=== PATIENT | male | born 1960 | race Caucasian/White ===

== ENCOUNTER 2017-01-09 20:56 | Emergency (ER) | payer OTHER, MEDICARE ==
[2017-01-09 21:21] VITALS: BP 129/84; PULSE 92; TEMP 98; BMI 31.0
[2017-01-09] MEDS ORDERED: KETOROLAC TROMETHAMINE 60 MG/2 ML VIAL ONE (21:24)
[2017-01-09] MEDS ORDERED: KETOROLAC TROMETHAMINE 60 MG/2 ML VIAL IM ONE (21:40)
--- NOTE | 2017-01-09 22:08 | PDOC ---
History of Present Illness - General Chief Complaint: Back Pain Stated Complaint: BACK PAIN Time Seen by Provider: 01/09/17 21:40 History Source: Patient Exam Limitations: No Limitations - History of Present Illness Initial Comments: 01/09/17 22:04 CC lower back pain x 2 days; no trauma Occurred: reports: yesterday Severity: reports: moderate Method of Injury: No: assault Associated Symptoms (Fall): denies symptoms Past History - Past Medical History Allergies/Adverse Reactions: Allergies Allergy/AdvReac Type Severity Reaction Status Date / Time phenytoin sodium Allergy Rash Verified 01/09/17 20:59 [From Dilantin] phenytoin sodium extended Allergy Rash Verified 01/09/17 20:59 [From Dilantin] Home Medications: Ambulatory Orders Divalproex *ER* [Depakote *ER* -] 1,500 mg PO DAILY 01/29/15 Atorvastatin Ca [Lipitor] 10 mg PO HS 03/18/15 Ibuprofen [Motrin -] 800 mg PO TID #30 tablet 12/17/15 Anemia: No Asthma: No Cancer: No Cardiac Disorders: No CVA: No COPD: No CHF: No Dementia: No Diabetes: No GI Disorders: Yes (ULCER) Disorders: No HTN: No Hypercholesterolemia: Yes Liver Disease: No Suicide Attempt (Hx): No Seizures: Yes Thyroid Disease: No - Surgical History Abdominal Surgery: Yes (LEFT INGUINAL HERNIA REPAIR) - Immunization History Immunization Up to Date: Yes - Psycho/Social/Smoking Cessation Hx Anxiety: No Suicidal Ideation: No Smoking Status: No Smoking History: Never smoked Have you smoked in the past 12 months: No Number of Cigarettes Smoked Daily: 0 Hx Alcohol Use: No Drug/Substance Use Hx: No Substance Use Type: None Hx Substance Use Treatment: No Review of Systems - Review of Systems Constitutional: No: Chills, Fever, Malaise HEENTM: No: Symptoms Reported Respiratory: No: Symptoms reported, Cough Cardiac (ROS): No: Symptoms Reported, Chest Pain ABD/GI: No: Symptoms Reported, Nausea, Vomiting : No: Symptoms Reported, Dysuria, Incontinence, Testicular Pain Musculoskeletal: Yes: Symptoms Reported, Back Pain. No: Neck Pain Integumentary: No: Erythema Hematologic/Lymphatic: No: Symptoms Reported *Physical Exam - Vital Signs Last Vital Signs Temp Pulse Resp BP Pulse Ox 98.0 F 92 H 20 129/84 97 01/09/17 21:00 01/09/17 21:00 01/09/17 21:00 01/09/17 21:00 01/09/17 21:00 - Physical Exam General Appearance: Yes: Appropriately Dressed. No: Apparent Distress HEENT: positive: TMs Normal, Pharynx Normal Neck: positive: Supple. negative: Tender, Rigid Respiratory/Chest: positive: Lungs Clear. negative: Chest Tender Cardiovascular: positive: Regular Rhythm, Regular Rate. negative: Murmur Gastrointestinal/Abdominal: positive: Normal Bowel Sounds, Soft. negative: Tender, Organomegaly Musculoskeletal: positive: Muscle Spasm, Other (tender perispinal area l3-l5) Neurologic: positive: Motor Strength 5/5, Other (no foot drop). negative: Sensory Deficit, Babinski Deep Tendon Reflexes: Knee (L): 2+, Knee (R): 2+ ED Treatment Course - Medications Given in the ED: ED Medications Discontinued Medications Generic Name Dose Route Start Last Admin Trade Name Freq PRN Reason Stop Dose Admin Ketorolac Tromethamine 60 mg 01/09/17 21:40 01/09/17 21:59 Toradol Injection - IM 01/09/17 21:41 60 mg ONCE ONE Administration Medical Decision Making - Medical Decision Making 01/09/17 22:07 intermit episodes; worse x 3 days; feeling better post toradol *DC/Admit/Observation/Transfer Diagnosis at time of Disposition: Back pain, lumbosacral - Discharge Dispostion Disposition: HOME Condition at time of disposition: Worsened Admit: No - Patient Instructions Additional Instructions: please see local Md next week
== END 2017-01-09 22:09 | disposition home or self-care (01) ==
LOC: JER 20:56
PROC: 3E0233Z Introduction of Anti-inflammatory into Muscle, Percutaneous Approach (ICD-10-PCS; principal; 2017-01-09)
DX: M54.5 Low back pain (principal); E78.00 Pure hypercholesterolemia, unspecified
CPT/HCPCS: 99281-25

== ENCOUNTER 2020-04-09 09:01 | Emergency (ER) | payer OTHER, MEDICARE ==
[2020-04-09 09:06] VITALS: BP 135/78; PULSE 83; TEMP 98.4; BMI 29.2
[2020-04-09] MEDS ORDERED: KETOROLAC TROMETHAMINE 30 MG/1 ML VIAL IM ONE (09:15)
[2020-04-09] MEDS ORDERED: LIDOCAINE 5% TOPICAL PATCH TP ONE (09:16)
[2020-04-09] MEDS ORDERED: LIDOCAINE 5% TOPICAL PATCH ONE (09:17)
[2020-04-09] MEDS ORDERED: KETOROLAC TROMETHAMINE 30 MG/1 ML VIAL ONE (09:17)
--- NOTE | 2020-04-09 09:24 | PDOC ---
History of Present Illness - General Chief Complaint: Pain Stated Complaint: BACK PAIN Time Seen by Provider: 04/09/20 09:14 History Source: Patient Exam Limitations: No Limitations - History of Present Illness Initial Comments: 04/09/20 09:14 Patient is a 59-year-old male who who works for [employer] who presents to the ED with complaint of right lower back pain that he has had for the last several days. He states this morning the pain is worse in the spasm is worse. He denies any numbness or tingling down his right lower extremity. He denies any urinary or fecal incontinence or retention. He states he has had this many times in the past and it feels similar to his previous back spasms. He is interested in having a Toradol injection for his pain. He denies any fevers or chills, urinary complaints, or any other concerning symptoms. Past History - Medical History Allergies/Adverse Reactions: Allergies Allergy/AdvReac Type Severity Reaction Status Date / Time phenytoin sodium Allergy Rash Verified 04/09/20 09:06 [From Dilantin] phenytoin sodium extended Allergy Rash Verified 04/09/20 09:06 [From Dilantin] Home Medications: Ambulatory Orders Divalproex *ER* [Depakote *ER* -] 1,500 mg PO DAILY 01/29/15 Atorvastatin Ca [Lipitor] 10 mg PO HS 03/18/15 Ibuprofen [Motrin -] 800 mg PO TID #30 tablet 12/17/15 Amox-Tr/K Cl [Augmentin - 875Mg Tablet] 1 tab PO BID #14 tablet 05/03/19 Azithromycin [Zithromax 250mg Tablets -] 250 mg PO UTDICT #6 tab 01/08/20 Anemia: No Asthma: No Cancer: No Cardiac Disorders: No CVA: No COPD: No CHF: No Dementia: No Diabetes: No GI Disorders: Yes (ULCER) Disorders: No HTN: No Hypercholesterolemia: Yes Liver Disease: No Seizures: Yes Thyroid Disease: No - Surgical History Abdominal Surgery: Yes (LEFT INGUINAL HERNIA REPAIR) - Immunization History Immunization Up to Date: Yes - Psycho-Social/Smoking History Smoking Status: No Smoking History: Never smoked Have you smoked in the past 12 months: No Number of Cigarettes Smoked Daily: 0 - Substance Abuse Hx (Audit-C & DAST Scrn) How often the patient has a drink containing alcohol: Never Score: In Men: 4 or > Positive; In Women: 3 or > Positive: 0 Screen Result (Pos requires Nsg. Audit-10AR): Negative Review of Systems - Review of Systems Comments:: 04/09/20 09:45 - Review of Systems Able to Perform ROS?: Yes Constitutional: No: Fever, Chills, Loss of Appetite, Night Sweats, Weakness HEENTM: No: Eye Pain, Vision changes, Ear Pain, Throat Pain, Throat Swelling, Mouth Pain, Difficulty Swallowing Respiratory: No: Cough, Shortness of Breath, Wheezing, Sputum Production Cardiac (ROS): No: Chest Pain, Chest Tightness, Palpitations, Irregular Heart Beat, Edema ABD/GI: No: Nausea, Vomiting, Abdominal Pain, Diarrhea : No Dysuria, No Hematuria, No Frequency, No Urgency Musculoskeletal: No: Muscle Pain, Joint Pain, Muscle Weakness, Neck Pain; positive: Right low back pain Integumentary: No: Lesions, Rash Neurological: No: Headache, Numbness, Tingling, Weakness, Speech Difficulties *Physical Exam - Vital Signs Last Vital Signs Temp Pulse Resp BP Pulse Ox 98.4 F 83 18 135/78 97 04/09/20 09:02 04/09/20 09:02 04/09/20 09:02 04/09/20 09:02 04/09/20 09:02 - Physical Exam 04/09/20 09:46 - Physical Exam General Appearance: Nourished, Appropriately Dressed, No Distress HEENT: EOMI, Normal Voice, Hearing Grossly Normal Neck: Supple, No Lymphadenopathy (R), No Lymphadenopathy (L), No Rigidity, No Decreased range of motion Respiratory/Chest: Lungs Clear, Normal Breath Sounds. No Respiratory Distress, No Accessory Muscle Use Cardiovascular: Regular Rhythm, Regular Rate, S1, S2 Gastrointestinal/Abdominal: Normal Bowel Sounds, Soft. Non-tender, No Guarding, No Rebound, No Rigidity, no CVA tenderness bilaterally Musculoskeletal: Normal Inspection. No Decreased Range of Motion; reproducible right lumbar back tenderness to palpation. No tenderness in the right buttock. No midline tenderness to palpation. Pain not exacerbated with external rotation of the hip. Strength 5/5 bilateral lower extremities. Normal gait. Sensation intact distally to light touch. Extremity: Normal Capillary Refill, Normal Inspection Integumentary: Normal Color, Dry. No Rash Neurologic: client executive II-XII NML intact, Fully Oriented, Alert, Normal Mood/Affect, Normal Response Medical Decision Making - Medical Decision Making 04/09/20 09:22 Assessment: Patient is a 59-year-old male with right-sided low back pain which is typical for his previous back pain. Plan: -IM Toradol given in the ED -Lidocaine patch given in the ED -Patient states he has NSAIDs and will purchase muscle pain patches [id number] -Patient to follow-up with his primary doctor for further evaluation and treatment. He understands and agrees with this treatment plan and he is stable for discharge. Discharge - Discharge Information Problems reviewed: Yes Clinical Impression/Diagnosis: Lumbar back pain Right low back pain Qualifiers: Chronicity: acute Sciatica presence: without sciatica Qualified Code(s): M54.5 - Low back pain Condition: Stable Disposition: HOME - Follow up/Referral Referrals: Wili Loza [Primary Care Provider] - Call tomorrow - Patient Discharge Instructions Patient Printed Discharge Instructions: DI for Low Back Pain Additional Instructions: Get plenty of rest and avoid strenuous activity. Avoid any heavy lifting. Due gentle stretching exercises to help keep the muscles loose. Take anti- inflammatories as needed but be sure to take with food. Follow-up with your primary doctor within 1 to 2 days for repeat evaluation. - Post Discharge Activity
[2020-04-09] MEDS ORDERED: LIDOCAINE PATCH REMOVAL MC SCH (22:00)
== END 2020-04-09 09:29 | disposition home or self-care (01) ==
LOC: JERFT 09:01
PROC: 3E023GC Introduction of Other Therapeutic Substance into Muscle, Percutaneous Approach (ICD-10-PCS; principal; 2020-04-09)
DX: M54.5 Low back pain (principal)
CPT/HCPCS: 99284-25

== ENCOUNTER 2020-05-27 17:16 | Emergency (ER) | payer OTHER, MEDICARE ==
--- NOTE | 2020-05-27 17:26 | PDOC ---
History of Present Illness - General Stated Complaint: SORE THROAT Time Seen by Provider: 05/27/20 17:18 History Source: Patient Exam Limitations: No Limitations - History of Present Illness Initial Comments: 05/27/20 17:21 60-year-old male past medical history of scleroderma hyperlipidemia seizure disorder presenting to the ED with 1 hour of sore throat headache and itchy eyes. Patient states he has no other symptoms at this time but is concerned since he is employed at [id number] and has direct patient contact. Headache not associated with lacrimation, fever, vomiting, changes in vision, photophobia or neck stiffness; not maximal intensity at onset and non-exertional at onset. Patient is requesting COVID and strep testing. Pt otherwise denies: fevers, chills, syncope, lightheadedness, dizziness, neck pain, chest pain, shortness of breath, palpitations, back pain, abdominal pain, nausea, vomiting, diarrhea, constipation Past History - Medical History Allergies/Adverse Reactions: Allergies Allergy/AdvReac Type Severity Reaction Status Date / Time phenytoin sodium Allergy Rash Verified 04/09/20 09:06 [From Dilantin] phenytoin sodium extended Allergy Rash Verified 04/09/20 09:06 [From Dilantin] Home Medications: Ambulatory Orders Divalproex *ER* [Depakote *ER* -] 1,500 mg PO DAILY 01/29/15 Atorvastatin Ca [Lipitor] 10 mg PO HS 03/18/15 Ibuprofen [Motrin -] 800 mg PO TID #30 tablet 12/17/15 Amox-Tr/K Cl [Augmentin - 875Mg Tablet] 1 tab PO BID #14 tablet 05/03/19 Azithromycin [Zithromax 250mg Tablets -] 250 mg PO UTDICT #6 tab 01/08/20 Anemia: No Asthma: No Cancer: No Cardiac Disorders: No CVA: No COPD: No CHF: No Dementia: No Diabetes: No GI Disorders: Yes (ULCER) Disorders: No HTN: No Hypercholesterolemia: Yes Liver Disease: No Seizures: Yes Thyroid Disease: No - Surgical History Abdominal Surgery: Yes (LEFT INGUINAL HERNIA REPAIR) - Immunization History Immunization Up to Date: Yes - Psycho-Social/Smoking History Smoking Status: No Smoking History: Never smoked Have you smoked in the past 12 months: No Number of Cigarettes Smoked Daily: 0 *Physical Exam - Physical Exam 05/27/20 17:23 Gen: AAOx 3, no acute distress, comfortable, no signs of respiratory distress HENT: atraumatic, normocephalic with no laceration or contusion. Nasal mucosa without erythema. Oropharynx with R sided tonsillar edema without erythema or exudates. Mucous membranes moist. No drooling airway patent EYES: PERRL, EOM intact, conjunctiva pink NECK: supple; trachea midline; no JVD, no lymphadenopathy, or thyromegaly CV: RRR no murmurs, gallops, or rubs. CHEST: CTA b/l no wheezing, rales or rhonchi ABD: +BS/ND. no TTP; soft, no rebound, no guarding EXTREMITY: no cyanosis or erythema. 2+ dorsalis pedis, posterior tibial, and radial pulse. No pedal edema; no calf swelling or tenderness SKIN: no rash, warm and dry, no diaphoresis HEME: no purpura or ecchymosis NEURO: normal speech, CN II-XII intact, sensation intact, normal gait, no cerebellar deficits MS: 5/5 strength in all extremities, FROM intact in all extremities. Medical Decision Making - Medical Decision Making 05/27/20 17:23 60-year-old male with sore throat for 1 hour VSS Will perform COVID and strep testing Strep negative Since patient is employee here will send home pending COVID results. Patient to follow-up with employee health in order to return to work. Pt appears well and is safe and stable for discharge with strict return precautions including signs and symptoms requring immediate return to the ED Supportive care instructions explained and given to pt. Reasons to return emergently to ER explained and given. Importance of follow up with PMD and other specialists as indicated stressed to pt. Pt verbalized understanding of instructions. Pt to follow up with PMD in 2 days. Discharge - Discharge Information Problems reviewed: Yes Clinical Impression/Diagnosis: Sore throat Condition: Disposition: HOME - Follow up/Referral Referrals: FriendWili [Primary Care Provider] - - Patient Discharge Instructions Patient Printed Discharge Instructions: DI for Viral Pharyngitis Additional Instructions: YOU MUST WAIT FOR YOUR COVID RESULTS BEFORE RETURNING TO WORK - Post Discharge Activity Work/Back to School Note: Back to Work
[2020-05-27 17:37] VITALS: BP 120/76; PULSE 77; TEMP 97.9; BMI 29.5
[2020-05-27 17:57] LABS: THROAT:GRP A STREP ANTIGEN Negative (Negative)
== END 2020-05-27 18:12 | disposition home or self-care (01) ==
LOC: JER 17:16
DX: R07.0 Pain in throat (principal)
CPT/HCPCS: 87070; 87880; 99283-25; U0003

== ENCOUNTER 2021-01-07 17:24 | Emergency (ER) | payer OTHER, MEDICARE ==
[2021-01-07 17:44] VITALS: BP 132/80; PULSE 79; TEMP 97.9; BMI 30.5
== END 2021-01-07 18:23 | disposition home or self-care (01) ==
LOC: JERFT 17:24
DX: M54.5 Low back pain (principal); Z76.0 Encounter for issue of repeat prescription
CPT/HCPCS: 99283-25

== ENCOUNTER 2021-02-22 12:23 | Emergency (ER) | payer OTHER, MEDICARE ==
[2021-02-22 12:34] VITALS: BP 136/77; PULSE 78; TEMP 98.3; BMI 30.2
[2021-02-22] MEDS ORDERED: SODIUM CHLORIDE 1,000 ML IV STA (12:40)
== END 2021-02-22 13:45 | disposition home or self-care (01) ==
LOC: JER 12:23
DX: R42 Dizziness and giddiness (principal)
CPT/HCPCS: 93005; 93010; 99284-25

== ENCOUNTER 2021-04-07 13:15 | Emergency (ER) | payer OTHER, MEDICARE ==
[2021-04-07 13:21] VITALS: BP 112/75; PULSE 80; TEMP 97; BMI 29.2
== END 2021-04-07 13:58 | disposition home or self-care (01) ==
LOC: JER 13:15 → JERFT 13:15
DX: R42 Dizziness and giddiness (principal)
CPT/HCPCS: 99284-25

== ENCOUNTER 2021-05-13 10:57 | Emergency (ER) | payer OTHER, MEDICARE ==
[2021-05-13 11:07] VITALS: BP 130/87; PULSE 82; TEMP 97.9; BMI 28.8
== END 2021-05-13 11:53 | disposition home or self-care (01) ==
LOC: JERFT 10:57
DX: J02.9 Acute pharyngitis, unspecified (principal)
CPT/HCPCS: 87880; 99283-25

== ENCOUNTER 2021-06-11 14:13 | Emergency (ER) | payer OTHER, MEDICARE ==
[2021-06-11 14:39] VITALS: BP 120/87; PULSE 87; TEMP 98.8; BMI 28.3
[2021-06-11] MEDS ORDERED: DIPHTH,PERTUSS(ACELL),TET 0.5 ML DISP.SYRIN IM ONE ×2 (15:24→15:36)
== END 2021-06-11 15:37 | disposition home or self-care (01) ==
LOC: JERFT 14:13 → JER 14:13 → JERFT 15:37
PROC: 3E0234Z Introduction of Serum, Toxoid and Vaccine into Muscle, Percutaneous Approach (ICD-10-PCS; principal; 2021-06-11)
DX: S80.212A Abrasion, left knee, initial encounter (principal); S50.311A Abrasion of right elbow, initial encounter; W19.XXXA Unspecified fall, initial encounter; Y92.9 Unspecified place or not applicable
CPT/HCPCS: 90715; 99283-25

== ENCOUNTER 2021-10-11 11:10 | Emergency (ER) | payer OTHER, MEDICARE ==
[2021-10-11 11:39] VITALS: BP 129/73; PULSE 78; TEMP 97.9; BMI 28.0
== END 2021-10-11 11:55 | disposition home or self-care (01) ==
LOC: JER 11:10
DX: J02.9 Acute pharyngitis, unspecified (principal)
CPT/HCPCS: 87070; 99281-25

== ENCOUNTER 2021-12-07 12:24 | Observation (INO) | payer OTHER, MEDICARE ==
[2021-12-07] MEDS ORDERED: LACTATED RINGERS SOLUTION 1000 ML INFUS.BAG IV ONE (12:29)
[2021-12-07 12:48] LABS: EOS % 0.6 % (0-4.5); HEMOGLOBIN 13.3 GM/dL (11.7-16.9); LYMPH % 16.4 % (8-40); MCH 31.6 pg (25.7-33.7); MCHC 33.4 g/dl (32.0-35.9); MEAN CELL VOLUME 94.7 fl (80-96); MEAN PLT VOLUME 9.1 fl (7.5-11.1); MONO % 12.6 % (3.8-10.2); NEUT % 69.4 % (42.8-82.8); PLATELET COUNT 151 10^3/uL (134-434); RBC 4.22 M/mm3 (4.00-5.60); RDW 14.2 % (11.9-15.9); WHITE BLOOD COUNT 6.2 K/mm3 (4.0-10.0)
[2021-12-07 12:57] LABS: INR 1.03 (0.83-1.09); PROTHROMBIN TIME (PATIENT) 11.9 SEC (9.7-13.0)
[2021-12-07 12:59] LABS: ACTIVATED PTT 34.7 SECONDS (25.2-36.5)
[2021-12-07 13:14] LABS: ALBUMIN 4.2 g/dl (3.4-5.0); BLOOD UREA NITROGEN 40.4 mg/dL (7-18); CALCIUM 9.4 mg/dL (8.5-10.1)
[2021-12-07 13:17] LABS: CREATININE 1.7 mg/dL (0.55-1.3)
[2021-12-07 13:18] LABS: BILIRUBIN,TOTAL 0.5 mg/dL (0.2-1)
[2021-12-07 13:19] LABS: TOT PROT 7.6 g/dl (6.4-8.2)
[2021-12-07] MEDS ORDERED: ACETAMINOPHEN 1000 MG/100 ML BAG IVPB ONE (13:38)
[2021-12-07] MEDS ORDERED: ACETAMINOPHEN INJECTION 100 ML IVPB ONE (13:46)
[2021-12-07 14:15] LABS: MAGNESIUM 2.3 mg/dL (1.8-2.4)
[2021-12-07 14:19] LABS: PHOSPHOROUS 3.4 mg/dL (2.5-4.9)
[2021-12-07 15:35] LABS: URINE APPEARANCE CLEAR; URINE BILIRUBIN NEGATIVE (NEGATIVE); URINE COLOR YELLOW; URINE GLUCOSE (UA) NEGATIVE (NEGATIVE); URINE KETONE NEGATIVE (NEGATIVE); URINE LEUK ESTERASE NEGATIVE (NEGATIVE); URINE NITRITE NEGATIVE (NEGATIVE); URINE PROTEIN NEGATIVE (NEGATIVE); URINE UROBILINOGEN 0.2 mg/dL (0.2-1.0)
[2021-12-07] MEDS ORDERED: LACTATED RINGERS SOLUTION 1,000 ML/1,000 ML INFUS.BAG IV SCH ×2 (18:00→20:26)
[2021-12-07 18:23] VITALS: BMI 26.6
[2021-12-07] MEDS: HYDROXYCHLOROQUINE SO4 200 MG TABLET (FP) PO SCH (21:53)
[2021-12-07] MEDS: azaTHIOprine 50 MG TABLET PO SCH (21:53)
[2021-12-07] MEDS: DIVALPROEX NA *ER* EXTEND REL 500 MG TABLET.SA (FP) PO SCH (21:53)
[2021-12-07] MEDS: HEPARIN NA (PORCINE) 5,000 UNITS/ML 1ML VIAL SQ SCH (21:53)
[2021-12-07] MEDS ORDERED: ROSUVASTATIN CA 10 MG TABLET PO SCH (22:00)
[2021-12-08] MEDS ORDERED: MAG HYDROX/AL HYDROX/SIMETH 30 ML UNIT-DOSE CUP PO ONE (05:12)
[2021-12-08] MEDS: HEPARIN NA (PORCINE) 5,000 UNITS/ML 1ML VIAL SQ SCH ×2 (05:20→15:33)
[2021-12-08 07:38] LABS: HEMOGLOBIN 12.6 GM/dL (11.7-16.9); MCHC 34.1 g/dl (32.0-35.9); MEAN CELL VOLUME 93.6 fl (80-96); MEAN PLT VOLUME 9.2 fl (7.5-11.1); PLATELET COUNT 128 10^3/uL (134-434); RBC 3.96 M/mm3 (4.00-5.60); RDW 14.2 % (11.9-15.9); WHITE BLOOD COUNT 4.7 K/mm3 (4.0-10.0)
[2021-12-08 08:14] LABS: CALCIUM 9.1 mg/dL (8.5-10.1)
[2021-12-08 08:15] LABS: ALBUMIN 3.5 g/dl (3.4-5.0)
[2021-12-08 08:18] LABS: BLOOD UREA NITROGEN 25.9 mg/dL (7-18); CREATININE 1.2 mg/dL (0.55-1.3); MAGNESIUM 2.1 mg/dL (1.8-2.4); PHOSPHOROUS 3.3 mg/dL (2.5-4.9)
[2021-12-08 08:19] LABS: TOT PROT 6.5 g/dl (6.4-8.2)
[2021-12-08 08:21] LABS: BILIRUBIN,TOTAL 0.9 mg/dL (0.2-1)
[2021-12-08] MEDS: HYDROXYCHLOROQUINE SO4 200 MG TABLET (FP) PO SCH (09:03)
[2021-12-08] MEDS: DIVALPROEX NA *ER* EXTEND REL 500 MG TABLET.SA (FP) PO SCH (09:04)
[2021-12-08] MEDS: azaTHIOprine 50 MG TABLET PO SCH (09:04)
[2021-12-08] MEDS ORDERED: NIFEdipine E.R. 30 MG TABLET PO SCH (10:00)
[2021-12-08 15:00] VITALS: BP 137/63; PULSE 83; TEMP 98.2
[2021-12-08] MEDS ORDERED: FAMOTIDINE 10 MG TABLET PO ONE (15:39)
== END 2021-12-08 18:29 | disposition home or self-care (01) ==
LOC: JER 12:24 → JERBED 13:56 → J4W 18:11
PROVIDERS: ADMIT Internal Medicine; ATTEND Internal Medicine
PROC: 3E033NZ Introduction of Analgesics, Hypnotics, Sedatives into Peripheral Vein, Percutaneous Approach (ICD-10-PCS; principal; 2021-12-07)
PROC: 3E023GC Introduction of Other Therapeutic Substance into Muscle, Percutaneous Approach (ICD-10-PCS; 2021-12-07)
PROC: 3E0337Z Introduction of Electrolytic and Water Balance Substance into Peripheral Vein, Percutaneous Approach (ICD-10-PCS; 2021-12-07)
DX: R55 Syncope and collapse (principal); M54.59 Other low back pain; G40.909 Epilepsy, unspecified, not intractable, without status epilepticus; F41.9 Anxiety disorder, unspecified; M62.830 Muscle spasm of back; H70.90 Unspecified mastoiditis, unspecified ear; Z88.8 Allergy status to other drugs, medicaments and biological substances
CPT/HCPCS: 36415; 70450-TC; 71045-TC-FY; 74176-TC; 80053; 80061; 80164; 81003; 82550; 82553; 82570; 82962; 83690; 83735; 84100; 84156; 84300; 84443; 84484; 85025; 85027; 85610; 85730; 93005; 93010; 93306-TC; 96361; 96372; 96374; 99285-25; C9803; G0378; J1644; U0003; U0005